=== PATIENT | male | born 1990 | race African-American/Black ===

== ENCOUNTER 2024-12-15 12:35 | Emergency (ER) | payer OTHER ==
[~2024-12-15] VITALS: Ht 185.4 cm; Wt 63.5 kg
[2024-12-15] MEDS ORDERED: ACETAMINOPHEN 500 MG TABLET ONE (14:07)
[2024-12-15] MEDS ORDERED: METOCLOPRAMIDE HCL 10 MG TABLET ONE (14:07)
[2024-12-15] MEDS: ACETAMINOPHEN 500 MG TABLET PO ONE (14:13)
[2024-12-15] MEDS: METOCLOPRAMIDE HCL 10 MG TABLET PO ONE (14:13)
[2024-12-15] MEDS ORDERED: SUMA50TA PO (15:21)
[2024-12-15] MEDS ORDERED: METO-295 PO (15:21)
[2024-12-15] MEDS ORDERED: SUMATRIPTAN SUCCINATE 6 MG/0.5 ML VIAL SQ ONE (15:26)
[2024-12-15] MEDS: SUMATRIPTAN SUCCINATE 6 MG/0.5 ML VIAL SQ ONE (15:36)
[2024-12-15 16:20] VITALS: BP 133/94; TEMP 98; O2SAT 100
== END 2024-12-15 16:21 | disposition home or self-care (01) ==
LOC: ER 12:35
DX: G43.009 Migraine without aura, not intractable, without status migrainosus (principal); F12.90 Cannabis use, unspecified, uncomplicated; F17.200 Nicotine dependence, unspecified, uncomplicated
CPT/HCPCS: 99285; 70450; 96372; J3030; A4606; A4663; A9150; J8597